=== PATIENT | female | born 1975 | race Caucasian/White ===

== ENCOUNTER 2017-07-04 21:09 | Emergency (ER) | payer MEDICAID ==
[~2017-07-04] VITALS: Ht 182.9 cm; Wt 174.2 kg
[2017-07-04 21:15] VITALS: Ht 182.9 cm; Wt 174.2 kg
[2017-07-04 22:33] LABS: BASOPHIL % 0.5 % (0-2); PLATELET COUNT 173 x10^3mcL (130-400)
[2017-07-04 22:34] LABS: RED CELL DISTRIBUTION WIDTH 15.6 % (11.5-14.5); UA SPECIFIC GRAVITY 1.025 (1.005-1.035); microscopic required? YES; urine erythrocyte TRACE (NEGATIVE)
[2017-07-04 23:23] LABS: CALCIUM 8.4 mg/dL (8.5-10.1); CARBON DIOXIDE 29.8 mmol/L (21-32); CHLORIDE SERUM 105 mmol/L (98-107); CREATININE SERUM 0.9 mg/dL (0.6-1.0); GFR1 > 60 mL/min; GLUCOSE SERUM 111 mg/dL (74-106); POTASSIUM SERUM 3.8 mmol/L (3.5-5.1); SODIUM SERUM 142 mmol/L (136-145)
[2017-07-04 23:28] LABS: ALKALINE PHOSPHATASE 59 U/L (46-116); ALT/SGPT 14 U/L (14-59); AST/SGOT 12 U/L (15-37); BILIRUBIN TOTAL 0.2 mg/dL (0.20-1.00); TOTAL PROTEIN, SERUM 6.5 g/dL (6.4-8.2); URIC ACID 5.7 mg/dL (2.6-6.0)
[2017-07-04 23:30] LABS: ALBUMIN 3.3 g/dL (3.4-5.0)
[2017-07-05 00:33] VITALS: BP 120/53
== END 2017-07-05 00:33 | disposition home or self-care (01) ==
LOC: ED 21:09
PROVIDERS: Emergency Medicine
DX: E66.01 Morbid (severe) obesity due to excess calories (principal); Z68.43 Body mass index [BMI] 50.0-59.9, adult; J45.909 Unspecified asthma, uncomplicated; I50.9 Heart failure, unspecified
CPT/HCPCS: J1170; Q0162

== ENCOUNTER 2017-09-18 10:25 | Emergency (ER) | payer MEDICAID ==
[~2017-09-18] VITALS: Ht 182.9 cm; Wt 166.9 kg
[2017-09-18 10:38] VITALS: BP 151/71; Ht 182.9 cm; Wt 166.9 kg
== END 2017-09-18 12:19 | disposition home or self-care (01) ==
LOC: ED 10:25
DX: L03.116 Cellulitis of left lower limb (principal); I50.9 Heart failure, unspecified; J45.909 Unspecified asthma, uncomplicated
CPT/HCPCS: 90715

== ENCOUNTER 2018-03-30 15:26 | Inpatient (IN) | payer MEDICAID ==
[~2018-03-30] VITALS: Ht 182.9 cm; Wt 169.8 kg
[2018-03-30 16:06] LABS: BASOPHIL % 0.4 % (0-2); PLATELET COUNT 193 x10^3mcL (130-400)
[2018-03-30 16:14] LABS: RED CELL DISTRIBUTION WIDTH 15.3 % (11.5-14.5)
[2018-03-30 16:17] LABS: CALCIUM 8.7 mg/dL (8.5-10.1); CARBON DIOXIDE 26.2 mmol/L (21-32); CHLORIDE SERUM 106 mmol/L (98-107); CREATININE SERUM 0.9 mg/dL (0.6-1.0); GFR1 > 60 mL/min; GLUCOSE SERUM 87 mg/dL (74-106); SODIUM SERUM 140 mmol/L (136-145)
[2018-03-30] MEDS ORDERED: VENTOLIN H0.09 MG/A1 (20:02)
[2018-03-30 21:05] LABS: T3 TOTAL 0.96 ng/mL
[2018-03-30 21:06] LABS: MAGNESIUM 1.8 mg/dL (1.8-2.4); PHOSPHOROUS 3.3 mg/dL (2.5-4.9)
[2018-03-30 21:09] LABS: FREE T4 0.77 ng/dL (0.76-1.46); FREE THYROXINE INDEX 1.7 ug/dL (1.4-4.5); T4(THYROXINE) 5.7 ug/dL (4.7-13.3)
[2018-03-30 21:10] LABS: CHOLESTEROL/HDL RATIO 2.8
[2018-03-30 22:45] VITALS: BP 128/71
[2018-03-30 22:48] VITALS: BP 146/81
[2018-03-31 05:59] VITALS: BP 109/59
[2018-03-31 06:00] LABS: UA SPECIFIC GRAVITY 1.015 (1.005-1.035); microscopic required? YES; urine erythrocyte NEGATIVE (NEGATIVE)
[2018-03-31 06:07] LABS: AMPHETAMINE QUAL UR NONE DETECTED (See below)
[2018-03-31 06:40] LABS: CALCIUM 8.6 mg/dL (8.5-10.1); CARBON DIOXIDE 22.8 mmol/L (21-32); CHLORIDE SERUM 106 mmol/L (98-107); CREATININE SERUM 0.9 mg/dL (0.6-1.0); GFR1 > 60 mL/min; GLUCOSE SERUM 155 mg/dL (74-106); MAGNESIUM 1.9 mg/dL (1.8-2.4); PHOSPHOROUS 3.2 mg/dL (2.5-4.9); POTASSIUM SERUM 4.6 mmol/L (3.5-5.1); SODIUM SERUM 139 mmol/L (136-145)
[2018-03-31 06:44] LABS: PLATELET COUNT 180 x10^3mcL (130-400)
[2018-03-31 06:59] LABS: BASOPHIL % 0 % (0-2); RED CELL DISTRIBUTION WIDTH 14.9 % (11.5-14.5)
[2018-03-31 09:55] VITALS: BP 128/71
[2018-03-31 13:51] VITALS: BP 123/62
[2018-04-01 05:22] VITALS: BP 118/70
[2018-04-01 06:17] LABS: CALCIUM 8.5 mg/dL (8.5-10.1); CARBON DIOXIDE 27.6 mmol/L (21-32); CHLORIDE SERUM 108 mmol/L (98-107); CREATININE SERUM 0.8 mg/dL (0.6-1.0); GFR1 > 60 mL/min; GLUCOSE SERUM 163 mg/dL (74-106); POTASSIUM SERUM 4.1 mmol/L (3.5-5.1); SODIUM SERUM 140 mmol/L (136-145)
[2018-04-01 06:20] LABS: BASOPHIL % 0.1 % (0-2); PLATELET COUNT 175 x10^3mcL (130-400)
[2018-04-01 07:08] LABS: RED CELL DISTRIBUTION WIDTH 15.6 % (11.5-14.5)
[2018-04-01 12:51] VITALS: BP 121/76
[2018-04-01 15:19] VITALS: Ht 182.9 cm; Wt 169.8 kg
[2018-04-01] MEDS ORDERED: BUDESONIDE0.5 MG/2 M IH (15:44)
[2018-04-01] MEDS ORDERED: BACO TOP (15:46)
[2018-04-01] MEDS ORDERED: LOT1C TOP (15:47)
[2018-04-01] MEDS ORDERED: APLICARE ANTIS118 M3 TOP (15:59)
[2018-04-01 16:11] VITALS: BP 121/76
== END 2018-04-01 16:35 | disposition home or self-care (01) | DRG 133 ==
LOC: ED 15:26 → DU 19:36
PROVIDERS: Emergency Medicine; Family Medicine
DX: J96.01 Acute respiratory failure with hypoxia (principal); D89.9 Disorder involving the immune mechanism, unspecified; E66.2 Morbid (severe) obesity with alveolar hypoventilation; Z68.43 Body mass index [BMI] 50.0-59.9, adult; J44.1 Chronic obstructive pulmonary disease with (acute) exacerbation; J96.12 Chronic respiratory failure with hypercapnia; M94.0 Chondrocostal junction syndrome [Tietze]; Z22.322 Carrier or suspected carrier of Methicillin resistant Staphylococcus aureus; Z86.718 Personal history of other venous thrombosis and embolism
CPT/HCPCS: 36600; 83880; 84439; 85378; 94150; J1644; J1885; J1956; J2920; J2930; J3010; J7030; J7040; J7620; J7626; Q9967

== ENCOUNTER 2018-07-29 19:01 | Emergency (ER) | payer MEDICAID ==
[~2018-07-29] VITALS: Ht 185.4 cm; Wt 176.4 kg
[~2018-07-29 19:01] MED LIST: APLICARE ANTIS118 M3 TOP; BACO TOP; BUDESONIDE0.5 MG/2 M IH; LOT1C TOP; VENTOLIN H0.09 MG/A1
[2018-07-29 19:19] VITALS: Ht 185.4 cm; Wt 176.4 kg
[2018-07-29 19:59] LABS: BASOPHIL % 0.2 % (0-2); PLATELET COUNT 169 x10^3mcL (130-400)
[2018-07-29 20:08] LABS: CALCIUM 8.2 mg/dL (8.5-10.1); CARBON DIOXIDE 30.4 mmol/L (21-32); CHLORIDE SERUM 105 mmol/L (98-107); CREATININE SERUM 0.9 mg/dL (0.6-1.0); GFR1 > 60 mL/min; GLUCOSE SERUM 97 mg/dL (74-106); POTASSIUM SERUM 3.8 mmol/L (3.5-5.1); SODIUM SERUM 142 mmol/L (136-145)
[2018-07-29 20:12] LABS: ALBUMIN 3.3 g/dL (3.4-5.0); ALKALINE PHOSPHATASE 57 U/L (46-116); ALT/SGPT 13 U/L (14-59); AST/SGOT 11 U/L (15-37); BILIRUBIN TOTAL 0.19 mg/dL (0.20-1.00); LIPASE 66 IU/L (73-393); TOTAL PROTEIN, SERUM 6.7 g/dL (6.4-8.2)
[2018-07-29 22:03] VITALS: BP 118/73
== END 2018-07-29 22:03 | disposition home or self-care (01) ==
LOC: ED 19:01
PROVIDERS: Emergency Medicine
DX: N64.4 Mastodynia (principal); K29.70 Gastritis, unspecified, without bleeding; I50.9 Heart failure, unspecified; Z90.49 Acquired absence of other specified parts of digestive tract; Z98.890 Other specified postprocedural states; Z88.6 Allergy status to analgesic agent
CPT/HCPCS: 82962; J2270; J2405; Q0092

== ENCOUNTER 2019-01-08 14:31 | Emergency (ER) | payer MEDICAID ==
[~2019-01-08] VITALS: Ht 182.9 cm; Wt 158.8 kg
[2019-01-08 14:42] VITALS: Ht 182.9 cm; Wt 158.8 kg
[2019-01-08 15:23] LABS: BASOPHIL % 0.4 % (0-2); PLATELET COUNT 201 x10^3mcL (130-400); RED CELL DISTRIBUTION WIDTH 15.1 % (11.5-14.5)
[2019-01-08 15:36] LABS: CALCIUM 8.9 mg/dL (8.5-10.1); CARBON DIOXIDE 29.7 mmol/L (21-32); CHLORIDE SERUM 107 mmol/L (98-107); GFR1 > 60 mL/min; GLUCOSE SERUM 102 mg/dL (74-106); POTASSIUM SERUM 4.1 mmol/L (3.5-5.1); SODIUM SERUM 146 mmol/L (136-145)
[2019-01-08 15:41] LABS: ALBUMIN 3.2 g/dL (3.4-5.0); ALKALINE PHOSPHATASE 61 U/L (46-116); ALT/SGPT 15 U/L (14-59); AST/SGOT 7 U/L (15-37); BILIRUBIN TOTAL 0.5 mg/dL (0.20-1.00); LIPASE 46 IU/L (73-393); TOTAL PROTEIN, SERUM 6.8 g/dL (6.4-8.2)
[2019-01-08 18:39] VITALS: BP 94/52
== END 2019-01-08 18:39 | disposition home or self-care (01) ==
LOC: ED 14:31
PROVIDERS: Emergency Medicine
DX: J40 Bronchitis, not specified as acute or chronic (principal); J06.9 Acute upper respiratory infection, unspecified; Z88.5 Allergy status to narcotic agent; Z90.49 Acquired absence of other specified parts of digestive tract
CPT/HCPCS: 83880; J0456; J1885; J2405; J2765; Q0092

== ENCOUNTER 2019-01-30 20:09 | Emergency (ER) | payer MEDICAID ==
[~2019-01-30] VITALS: Ht 182.9 cm; Wt 158.3 kg
[2019-01-30 20:30] VITALS: Ht 182.9 cm; Wt 158.3 kg
[2019-01-30 21:35] LABS: BASOPHIL % 0.8 % (0-2); PLATELET COUNT 202 x10^3mcL (130-400)
[2019-01-30 21:36] LABS: RED CELL DISTRIBUTION WIDTH 15.7 % (11.5-14.5)
[2019-01-30 21:51] LABS: CALCIUM 9.3 mg/dL (8.5-10.1); CARBON DIOXIDE 27.6 mmol/L (21-32); CHLORIDE SERUM 107 mmol/L (98-107); CREATININE SERUM 0.9 mg/dL (0.6-1.0); GFR1 > 60 mL/min; GLUCOSE SERUM 97 mg/dL (74-106); POTASSIUM SERUM 3.8 mmol/L (3.5-5.1); SODIUM SERUM 143 mmol/L (136-145)
[2019-01-30 21:56] LABS: ALBUMIN 3.4 g/dL (3.4-5.0); ALKALINE PHOSPHATASE 64 U/L (46-116); ALT/SGPT 13 U/L (14-59); AST/SGOT 4 U/L (15-37); BILIRUBIN TOTAL 0.35 mg/dL (0.20-1.00); LIPASE 68 IU/L (73-393); TOTAL PROTEIN, SERUM 7.1 g/dL (6.4-8.2)
[2019-01-30 23:08] VITALS: BP 112/78
== END 2019-01-30 23:08 | disposition home or self-care (01) ==
LOC: ED 20:09
PROVIDERS: Emergency Medicine
DX: K29.70 Gastritis, unspecified, without bleeding (principal); I50.9 Heart failure, unspecified; J45.909 Unspecified asthma, uncomplicated; Z90.49 Acquired absence of other specified parts of digestive tract; Z98.890 Other specified postprocedural states
CPT/HCPCS: J2270; J2405; J7030

== ENCOUNTER 2019-04-22 14:47 | Emergency (ER) | payer MEDICAID ==
[~2019-04-22] VITALS: Ht 180.3 cm; Wt 170.3 kg
[2019-04-22 15:04] VITALS: Ht 180.3 cm; Wt 170.3 kg
[2019-04-22 15:50] LABS: BASOPHIL % 0.6 % (0-2); PLATELET COUNT 194 x10^3mcL (130-400)
[2019-04-22 15:51] LABS: RED CELL DISTRIBUTION WIDTH 14.9 % (11.5-14.5)
[2019-04-22 15:59] LABS: CALCIUM 8.2 mg/dL (8.5-10.1); CARBON DIOXIDE 30.5 mmol/L (21-32); CHLORIDE SERUM 108 mmol/L (98-107); CREATININE SERUM 0.9 mg/dL (0.6-1.0); GFR1 > 60 mL/min; GLUCOSE SERUM 89 mg/dL (74-106); POTASSIUM SERUM 3.8 mmol/L (3.5-5.1); SODIUM SERUM 143 mmol/L (136-145)
[2019-04-22 16:03] LABS: ALBUMIN 3.4 g/dL (3.4-5.0); ALKALINE PHOSPHATASE 69 U/L (46-116); ALT/SGPT 12 U/L (14-59); AST/SGOT 11 U/L (15-37); BILIRUBIN TOTAL 0.26 mg/dL (0.20-1.00); TOTAL PROTEIN, SERUM 6.7 g/dL (6.4-8.2)
[2019-04-22 18:14] VITALS: BP 112/64
== END 2019-04-22 18:14 | disposition home or self-care (01) ==
LOC: ED 14:47
PROVIDERS: Emergency Medicine
DX: R60.0 Localized edema (principal); R05 Cough; R09.81 Nasal congestion; J45.909 Unspecified asthma, uncomplicated; I50.9 Heart failure, unspecified; Z90.49 Acquired absence of other specified parts of digestive tract
CPT/HCPCS: 36415; 83880; 85378; J1885; Q0092

== ENCOUNTER 2019-08-16 08:18 | Emergency (ER) | payer MEDICAID ==
[~2019-08-16] VITALS: Ht 175.3 cm; Wt 180.1 kg
[2019-08-16 08:42] VITALS: Ht 175.3 cm; Wt 180.1 kg
[2019-08-16 12:50] VITALS: BP 146/64
== END 2019-08-16 12:50 | disposition home or self-care (01) ==
LOC: ED 08:18
DX: J45.901 Unspecified asthma with (acute) exacerbation (principal); B34.9 Viral infection, unspecified; E66.01 Morbid (severe) obesity due to excess calories; I50.9 Heart failure, unspecified; Z90.49 Acquired absence of other specified parts of digestive tract
CPT/HCPCS: 87804; J7613; J7644

== ENCOUNTER 2020-02-04 18:00 | Emergency (ER) | payer MEDICAID ==
[~2020-02-04] VITALS: Ht 182.9 cm; Wt 191.9 kg
[2020-02-04 18:05] VITALS: Ht 182.9 cm; Wt 191.9 kg
[2020-02-04 18:58] VITALS: BP 132/78
== END 2020-02-04 18:58 | disposition home or self-care (01) ==
LOC: ED 18:00
DX: T21.22XA Burn of second degree of abdominal wall, initial encounter (principal); T21.11XA Burn of first degree of chest wall, initial encounter; J44.9 Chronic obstructive pulmonary disease, unspecified; I50.9 Heart failure, unspecified; Z90.49 Acquired absence of other specified parts of digestive tract; X08.8XXA Exposure to other specified smoke, fire and flames, initial encounter; Y93.89 Activity, other specified; Y92.89 Other specified places as the place of occurrence of the external cause; Y99.8 Other external cause status
CPT/HCPCS: J1885

== ENCOUNTER 2020-02-25 19:23 | Emergency (ER) | payer MEDICAID ==
[2020-02-25 20:40] VITALS: BP 109/57
== END 2020-02-25 21:45 | disposition home or self-care (01) ==
LOC: ED 19:23
DX: S30.23XA Contusion of vagina and vulva, initial encounter (principal); X58.XXXA Exposure to other specified factors, initial encounter; Y93.89 Activity, other specified; Y92.89 Other specified places as the place of occurrence of the external cause; Y99.8 Other external cause status

== ENCOUNTER 2020-09-09 12:30 | Emergency (ER) | payer MEDICAID ==
[~2020-09-09] VITALS: Ht 182.9 cm; Wt 208.2 kg
[2020-09-09 12:50] VITALS: Ht 182.9 cm; Wt 208.2 kg
[2020-09-09 14:22] VITALS: BP 121/74
== END 2020-09-09 14:22 | disposition home or self-care (01) ==
LOC: ED 12:30
DX: M62.830 Muscle spasm of back (principal); M25.512 Pain in left shoulder; J44.9 Chronic obstructive pulmonary disease, unspecified; I50.9 Heart failure, unspecified; Z90.49 Acquired absence of other specified parts of digestive tract
CPT/HCPCS: 20552; J1885; J2001